=== PATIENT | male | born 1980 | race Caucasian/White ===

== ENCOUNTER 2018-11-17 22:00 | Emergency (ER) | payer SELFPAY ==
[~2018-11-17] VITALS: Ht 170.2 cm; Wt 87.1 kg
[~2018-11-17 22:00] MED LIST: HYDR-4011 PO
[2018-11-17 22:02] VITALS: Ht 170.2 cm; Wt 87.1 kg
[2018-11-17] MEDS ORDERED: ONDANSETRON 4 MG INJ IV STA (23:32)
[2018-11-17] MEDS ORDERED: SOD CHLORIDE 0.9% 1,000 ML IV STA (23:32)
[2018-11-18] MEDS ORDERED: SENN-120 PO (02:08)
--- NOTE | 2018-11-18 02:14 | ERD ---
ER Documentation Chief Complaint Chief Complaint AP X'S 3 DAYS HPI This is a 38-year-old male with history of appendectomy presents the ED complaining of generalized abdominal pain x3 days. Pain is worse today. He describes the pain as squeezing with some bloating. He also reports one episode of nonbilious, nonbloody emesis, which occurs after eating. He states he has been taking Colace with no relief of his constipation. No fevers or chills. No urinary symptoms. No other complaints. ROS All systems reviewed and are negative except as per history of present illness. Medications Home Meds Active Scripts Sennosides* (Senna Lax*) 8.6 Mg Tablet, 2 TAB PO DAILY for constipation, #10 TAB Prov:PETE GARCÍA PA-C 11/18/18 Hydrocodone/Acetaminophen ([place] 5-325 Tablet) 1 Each Tablet, 1 EACH PO Q6H, #1 TAB Prov:BETH FERRO. 03/28/16 Allergies Allergies: Coded Allergies: No Known Allergy (Unverified , 03/26/16) PMhx/Soc Medical and Surgical Hx: pt denies Medical Hx, pt denies Surgical Hx History of Surgery: No Anesthesia Reaction: No Hx Neurological Disorder: No Hx Respiratory Disorders: No Hx Cardiac Disorders: No Hx Psychiatric Problems: No Hx Miscellaneous Medical Probl: Yes (KNEE SWELLING ) Hx Substance Use: No Hx Tobacco Use: No Smoking Status: Never smoker Physical Exam Vitals Vital Signs Date Temp Pulse Resp B/P (MAP) Pulse Ox O2 O2 Flow FiO2 Time Delivery Rate 11/17/18 98.7 105 18 132/92 97 22:02 (105) Physical Exam Const: No acute distress Head: Atraumatic Eyes: Normal Conjunctiva ENT: Normal External Ears, Nose and Mouth. Neck: Full range of motion. No meningismus. Resp: Clear to auscultation bilaterally Cardio: Regular rate and rhythm, no murmurs Abd: Soft, + generalized abdominal tenderness. Mildly distended. No organomegaly. Negative Keating's. Normal bowel sounds Skin: No petechiae or rashes Back: No midline or flank tenderness Ext: No cyanosis, or edema Neur: Awake and alert Psych: Normal Mood and Affect Result Diagram: 11/17/18 3672 11/17/18 9495 Results 24 hrs Laboratory Tests Test 11/17/18 23:54 White Blood Count 10.2 10^3/ul Red Blood Count 4.82 10^6/ul Hemoglobin 14.7 g/dl Hematocrit 43.4 % Mean Corpuscular Volume 90.0 fl Mean Corpuscular Hemoglobin 30.5 pg Mean Corpuscular Hemoglobin Concent 33.9 g/dl Red Cell Distribution Width 11.8 % Platelet Count 273 10^3/UL Mean Platelet Volume 9.9 fl Immature Granulocytes % 0.900 % Neutrophils % 51.3 % Lymphocytes % 35.4 % Monocytes % 7.5 % Eosinophils % 4.5 % Basophils % 0.4 % Nucleated Red Blood Cells % 0.0 /100WBC Immature Granulocytes # 0.090 10^3/ul Neutrophils # 5.2 10^3/ul Lymphocytes # 3.6 10^3/ul Monocytes # 0.8 10^3/ul Eosinophils # 0.5 10^3/ul Basophils # 0.0 10^3/ul Nucleated Red Blood Cells # 0.0 10^3/ul Urine Color STRAW Urine Clarity CLEAR Urine pH 7.0 Urine Specific [place] 1.012 Urine Ketones NEGATIVE mg/dL Urine Nitrite NEGATIVE mg/dL Urine Bilirubin NEGATIVE mg/dL Urine Urobilinogen NEGATIVE mg/dL Urine Leukocyte Esterase NEGATIVE Tim/ul Urine Hemoglobin NEGATIVE mg/dL Urine Glucose NEGATIVE mg/dL Urine Total Protein NEGATIVE mg/dl Sodium Level 141 mmol/L Potassium Level 3.9 mmol/L Chloride Level 102 mmol/L Carbon Dioxide Level 30 mmol/L Anion Gap 9 Blood Urea Nitrogen 15 mg/dl Creatinine 1.16 mg/dl Est Glomerular Filtrat Rate mL/min > 60 mL/min Glucose Level 110 mg/dl Calcium Level 9.7 mg/dl Total Bilirubin 0.6 mg/dl Direct Bilirubin 0.00 mg/dl Indirect Bilirubin 0.6 mg/dl Aspartate Amino Transf (AST/SGOT) 29 IU/L Alanine Aminotransferase (ALT/SGPT) 49 IU/L Alkaline Phosphatase 70 IU/L Total Protein 7.8 g/dl Albumin 4.5 g/dl Globulin 3.30 g/dl Albumin/Globulin Ratio 1.36 Lipase 105 U/L Current Medications Medications Dose Sig/Damaris Start Time Status Last (Trade) Ordered Route PRN Stop Time Admin Dose Reason Admin Sodium 1,000 ml @ Q1H STAT 11/17/18 DC 11/17/18 Chloride 1,000 mls/hr IV 23:32 23:59 11/18/18 00:31 Ondansetron 4 mg ONCE STAT 11/17/18 DC 11/17/18 HCl (Zofran IV 23:32 23:59 Inj) 11/17/18 23:34 Procedures/MDM LABS & DIAGNOSTIC IMAGING: CBC: no e/o of systemic infection or severe anemia CMP: no e/o severe acidosis, alkalosis, renal failure, diabetic ketoacidosis, liver disease Lipase: negative Urine: no e/o acute infection or hematuria PROCEDURE: DX Elbow. CLINICAL INDICATION: 6 year-old male. Fell off couch. Right elbow pain. TECHNIQUE: 3 views COMPARISON: None. FINDINGS: Osseous structures: Normal bone mineralization. There is an acute Salter II fracture involving the radial neck. No lytic or blastic changes. Joint space: No dislocation. Small hemarthrosis is present. Soft tissues: Normal appearing soft tissues. No radiopaque foreign body or soft tissue gas. IMPRESSION: Acute Salter II fracture involving the radial neck with small hemarthrosis. ED COURSE: The patient was given IV fluids, Zofran The medication was well tolerated and the patient had market improvement in symptoms. The patient remained stable throughout ED course. MEDICAL DECISION MAKING: This is a 38-year-old male presents with generalized abdominal pain x3 days. Has no fever here. Vital signs are stable. His lab work-up including CBC, CMP and lipase are unremarkable. I have low suspicion for nephrolithiasis, cholelithiasis, cholecystitis, pancreatitis, AAA or any other emergent process. Patient symptoms improved after 1 L of IV fluids and Zofran. I believe his symptoms are related to his constipation. KUB reveals no evidence of obstruction. I recommended he continue with his Colace, also prescribed senna. Recommended dietary changes. Follow-up with primary care physician this week. Return here with any new or worsening symptoms. PRESCRIPTIONS: Senna SPECIALIST FOLLOW UP RECOMMENDED: None Patient has been advised to follow up with primary care in 1-2 days. Departure Diagnosis: Primary Impression: Abdominal pain Abdominal location: generalized Qualified Codes: R10.84 - Generalized abdominal pain Additional Impression: Constipation Constipation type: unspecified constipation type Qualified Codes: K59.00 - Constipation, unspecified Condition: Stable Patient Instructions: Abdominal Pain, Treating Constipation Additional Instructions: Call your primary care doctor TOMORROW for an appointment during the next 2-4 days and bring all the information and medications prescribed. If the symptoms get worse and your provider is unavailable, return to the Emergency Department immediately. PETE GARCÍA PA-C Nov 18, 2018 02:14
[2018-11-18 02:29] VITALS: BP 111/74; PULSE 79; RESP 19
== END 2018-11-18 02:31 | disposition home or self-care (01) ==
LOC: FTE 22:00
DX: K59.00 Constipation, unspecified (principal)
CPT/HCPCS: 36415; 74018; 80053; 81003; 83690; 85025; 96374; 99284; J2405; J7030